=== PATIENT | male | born 1945 | race Caucasian/White ===

== ENCOUNTER → 2017-09-19 | Outpatient (CLI) | payer OTHER ==
[~2017-09-19] MED LIST: ALLOPURINOL 10100 M1 PO; ATORVASTATIN CA10 MG; ATORVASTATIN CA20 MG PO; EFFIENT10 MG PO; GLIPIZIDE XL2.5 MG PO; GLUCOTROL10 MG PO; HYPERTENSION MED; LASIX 40 MG TAB40 M1; LISINOPRIL40 MG; METOPROLOL SUCC25 M1 PO; NITROGLYCERIN0.4 MG SL; POTASSIUM CITR10 ME1 PO; POTASSIUM CITRA5 MEQ PO; PROSTATE MED; TERAZOSIN HCL10 MG; TRAMADOL HCL50 MG; UROCIT-K15 MEQ PO; VITAMIN D31000 UNI2 PO; VITAMIN D400 UNI1 PO
== END ==
LOC: M.ULTRA 09-13 15:47
DX: R22.41 Localized swelling, mass and lump, right lower limb (principal); Z88.1 Allergy status to other antibiotic agents; Z88.5 Allergy status to narcotic agent; Z88.0 Allergy status to penicillin; Z91.018 Allergy to other foods

== ENCOUNTER 2020-10-07 19:43 | Emergency (ER) | payer OTHER ==
[~2020-10-07] VITALS: Ht 177.8 cm; Wt 102.1 kg
[2020-10-07] MEDS ORDERED: HYDROCODON-ACE1 EAC8 PO (22:40)
[2020-10-07 23:00] VITALS: BP 148/67
--- NOTE | 2020-10-08 10:51 | EKG ---
[place] [address] ELECTROCARDIOGRAM REPORT Name: AMADO CHANDLER Room: [facility]#: [id number] Admission: 10/07/20 Attend Phys: Discharge: 10/07/20 Date of : 43 Date of Service: 10/07/202001 Report #: [id number] THIS REPORT FOR: //name// [facility] ED Test Date: 2020-10-07 Test Time: 20:02:55 Pat Name: AMADO CHANDLER Department: Room: Gender: Place Change Roof [place]: OR : 1945 Requested By: Kathy Vazquez Order Number: [id number] Rachid MD: Jeovany Garcia Measurements Intervals [place] Rate: 56 P: 31 [place]: 202 QRS: 5 QRSD: 93 T: 4 QT: 466 QTc: 450 Interpretive Statements Sinus bradycardia septal q waves Low voltage, precordial leads Compared to ECG 08/12/2013 09:27:22 rate has slowed Electronically Signed On 10-08-2020 10:51:14 CDT by Jeovany Garcia [email or web address] <ELECTRONICALLY SIGNED> By: Jeovany Garcia MD, [facility] 10/08/20 1051 01 01 Jeovany Garcia MD, [facility] /EPI
== END 2020-10-07 23:00 | disposition home or self-care (01) ==
LOC: M.ERS 19:43
DX: S42.214A Unspecified nondisplaced fracture of surgical neck of right humerus, initial encounter for closed fracture (principal); S51.011A Laceration without foreign body of right elbow, initial encounter; E11.9 Type 2 diabetes mellitus without complications; I10 Essential (primary) hypertension; E78.00 Pure hypercholesterolemia, unspecified; Z88.1 Allergy status to other antibiotic agents; Z88.0 Allergy status to penicillin; Z88.5 Allergy status to narcotic agent; Z79.899 Other long term (current) drug therapy; Z87.442 Personal history of urinary calculi; W18.09XA Striking against other object with subsequent fall, initial encounter; Y93.89 Activity, other specified; Y92.89 Other specified places as the place of occurrence of the external cause; Y99.9 Unspecified external cause status

== ENCOUNTER 2020-10-09 14:36 | Emergency (ER) | payer OTHER ==
[~2020-10-09] VITALS: Ht 175.3 cm; Wt 102.1 kg
[~2020-10-09 14:36] MED LIST changes: +HYDROCODON-ACE1 EAC8 PO
[2020-10-09 14:54] VITALS: BP 142/53
== END 2020-10-09 16:08 | disposition home or self-care (01) ==
LOC: M.ERS 14:36
DX: S42.301A Unspecified fracture of shaft of humerus, right arm, initial encounter for closed fracture (principal); R60.0 Localized edema; E11.9 Type 2 diabetes mellitus without complications; I10 Essential (primary) hypertension; E78.00 Pure hypercholesterolemia, unspecified; Z87.442 Personal history of urinary calculi; Z88.0 Allergy status to penicillin; Z88.5 Allergy status to narcotic agent; Z88.8 Allergy status to other drugs, medicaments and biological substances; Z91.018 Allergy to other foods; W18.39XA Other fall on same level, initial encounter; Y93.89 Activity, other specified; Y92.89 Other specified places as the place of occurrence of the external cause; Y99.8 Other external cause status